=== PATIENT | female | born 2000 | race African-American/Black ===

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

== ENCOUNTER → 2022-01-11 | Outpatient (CLI) | payer MEDICAID | LOC: COL.RAD 10:02 | DX: K76.0 Fatty (change of) liver, not elsewhere classified (principal) | CPT/HCPCS: Q9967 ==

== ENCOUNTER 2022-06-26 11:20 | Emergency (ER) | payer MEDICAID ==
[~2022-06-26] VITALS: Ht 170.2 cm; Wt 97.7 kg
[2022-06-26 11:41] VITALS: TEMP 97.3
[2022-06-26 12:23] LABS: BASO % 0.2 % (0.0-2.0); GRAN # 7.9 K/mm3 (1.4-6.5); GRAN % 78.7 % (42.2-75.2); HEMATOCRIT 44.2 % (35.0-45.0); HEMOGLOBIN 15.6 g/dl (12.0-15.0); LYMPH # 1.7 K/mm3 (1.2-3.4); LYMPH % 17.1 % (20.0-51.0); MEAN CELL VOLUME 93 fl (80.0-95.0); MEAN CORPUSCULAR HEMOGLOBIN 33 pg (26-32); MEAN CORPUSCULAR HGB CONC 35 g/dl (33.0-37.0); MONO # 0.4 K/mm3 (0.1-0.6); MONO % 3.7 % (1.7-9.3); PLATELET COUNT 394 K/mm3 (130-400); RED BLOOD COUNT 4.76 M/mm3 (4.10-5.30); REDCELL DISTRIBUTION WIDTH-CV 11.9 % (11.5-14.5)
[2022-06-26 12:38] LABS: ALBUMIN 4.6 gm/dL (3.5-5.0); BILIRUBIN,TOTAL 0.3 mg/dL (0.2-1.2); CALCIUM 9.9 mg/dL (8.4-10.2); CREATININE, serum 0.74 mg/dL (0.57-1.11); POTASSIUM 3.9 mmol/L (3.5-4.5)
[2022-06-26] MEDS ORDERED: ZOFRAN ODT4 MG PO (14:22)
[2022-06-26 14:44] VITALS: BP 134/94; PULSE 76
== END 2022-06-26 14:44 | disposition home or self-care (01) ==
LOC: COL.ER 11:20
PROVIDERS: Personal Emergency Response Attendant
DX: O21.9 Vomiting of pregnancy, unspecified (principal); O26.899 Other specified pregnancy related conditions, unspecified trimester; R10.13 Epigastric pain; O99.330 Smoking (tobacco) complicating pregnancy, unspecified trimester; F17.290 Nicotine dependence, other tobacco product, uncomplicated; Z3A.00 Weeks of gestation of pregnancy not specified
CPT/HCPCS: J1790; J2270; J2405; J7030; Q9967

== ENCOUNTER 2022-07-01 05:18 | Emergency (ER) | payer MEDICAID ==
[~2022-07-01] VITALS: Ht 170.2 cm; Wt 97.7 kg
[~2022-07-01 05:18] MED LIST changes: +ZOFRAN ODT4 MG PO
[2022-07-01 05:19] VITALS: TEMP 97.9
[2022-07-01 06:02] LABS: ALBUMIN 4.4 gm/dL (3.5-5.0); BILIRUBIN,TOTAL 0.7 mg/dL (0.2-1.2); CALCIUM 9.8 mg/dL (8.4-10.2); CREATININE, serum 0.76 mg/dL (0.57-1.11); POTASSIUM 3.8 mmol/L (3.5-4.5); TOTAL PROTEIN 7.2 gm/dL (6.2-8.1)
[2022-07-01 06:03] LABS: BASO % 0.1 % (0.0-2.0); EOS # 0.1 K/mm3 (0.0-0.7); EOS % 0.6 % (0.0-4.0); GRAN # 6.4 K/mm3 (1.4-6.5); GRAN % 65.3 % (42.2-75.2); HEMATOCRIT 40.7 % (35.0-45.0); HEMOGLOBIN 14.6 g/dl (12.0-15.0); LYMPH # 2.8 K/mm3 (1.2-3.4); LYMPH % 28.2 % (20.0-51.0); MEAN CELL VOLUME 92 fl (80.0-95.0); MEAN CORPUSCULAR HEMOGLOBIN 33 pg (26-32); MEAN CORPUSCULAR HGB CONC 36 g/dl (33.0-37.0); MONO # 0.5 K/mm3 (0.1-0.6); MONO % 5.5 % (1.7-9.3); PLATELET COUNT 381 K/mm3 (130-400); RED BLOOD COUNT 4.44 M/mm3 (4.10-5.30); REDCELL DISTRIBUTION WIDTH-CV 11.8 % (11.5-14.5)
[2022-07-01] MEDS ORDERED: ZOFRAN ODT4 MG PO (07:08)
[2022-07-01 07:31] VITALS: BP 131/94; PULSE 83
== END 2022-07-01 07:34 | disposition home or self-care (01) ==
LOC: COL.ER 05:18
PROVIDERS: Personal Emergency Response Attendant
DX: R10.13 Epigastric pain (principal); R11.0 Nausea; Z32.02 Encounter for pregnancy test, result negative; Z28.311 Partially vaccinated for COVID-19
CPT/HCPCS: C9113; J1790; J2270; J2405; J7030

== ENCOUNTER 2022-07-11 06:22 | Emergency (ER) | payer MEDICAID ==
[2022-07-11 06:35] VITALS: TEMP 97.4
[2022-07-11] MEDS ORDERED: PEPCID 20MG TAB20 MG PO (06:45)
[2022-07-11 07:08] LABS: BASO % 0.1 % (0.0-2.0); EOS # 0.1 K/mm3 (0.0-0.7); EOS % 0.8 % (0.0-4.0); GRAN # 6.3 K/mm3 (1.4-6.5); GRAN % 61.1 % (42.2-75.2); HEMATOCRIT 45.1 % (35.0-45.0); HEMOGLOBIN 15.9 g/dl (12.0-15.0); LYMPH # 3.4 K/mm3 (1.2-3.4); LYMPH % 33.1 % (20.0-51.0); MEAN CELL VOLUME 94 fl (80.0-95.0); MEAN CORPUSCULAR HEMOGLOBIN 33 pg (26-32); MEAN CORPUSCULAR HGB CONC 35 g/dl (33.0-37.0); MEAN PLATELET VOLUME 9.2 fl (7.4-10.4); MONO # 0.5 K/mm3 (0.1-0.6); MONO % 4.6 % (1.7-9.3); PLATELET COUNT 444 K/mm3 (130-400); RED BLOOD COUNT 4.81 M/mm3 (4.10-5.30); REDCELL DISTRIBUTION WIDTH-CV 11.8 % (11.5-14.5)
[2022-07-11 07:13] LABS: BILIRUBIN,TOTAL 0.4 mg/dL (0.2-1.2); CALCIUM 9.6 mg/dL (8.4-10.2); CREATININE, serum 0.87 mg/dL (0.57-1.11); POTASSIUM 3.5 mmol/L (3.5-4.5); TOTAL PROTEIN 7.1 gm/dL (6.2-8.1)
[2022-07-11] MEDS ORDERED: PROTONIX 40MG T40 MG PO (07:31)
[2022-07-11 07:40] VITALS: BP 128/97; PULSE 108
[2022-07-11 07:46] LABS: COLLECTION METHOD CLEAN CATCH
[2022-07-11 08:00] LABS: MUCOUS Present (NOT PRESENT); URINE BACTERIA Rare /hpf (NONE SEEN); URINE COLOR Yellow (YELLOW); URINE RBC 0-2 /hpf (0-2)
[2022-07-11 08:01] LABS: PH 5.5 (5-8); URINE APPEARANCE Hazy (CLEAR/HAZY); URINE BLOOD Negative (NEGATIVE); URINE GLUCOSE Negative (NEGATIVE); URINE KETONE Negative (NEGATIVE); URINE NITRATE Negative (NEGATIVE); URINE PROTEIN(semi-quant) Negative (NEGATIVE); URINE UROBILINOGEN 0.2 (NEGATIVE)
== END 2022-07-11 07:40 | disposition home or self-care (01) ==
LOC: COL.ER 06:22
PROVIDERS: Emergency Medicine
DX: R10.13 Epigastric pain (principal); Z32.02 Encounter for pregnancy test, result negative; Z28.311 Partially vaccinated for COVID-19
CPT/HCPCS: J1790

== ENCOUNTER 2022-08-12 06:28 | Day surgery (SDC) | payer MEDICAID ==
[~2022-08-12] VITALS: Ht 170.2 cm; Wt 96.8 kg
[~2022-08-12 06:28] MED LIST changes: +PEPCID 20MG TAB20 MG PO; +PROTONIX 40MG T40 MG PO; +REGLAN 10MG10 MG/TAB PO
[2022-08-12] MEDS ORDERED: AMITRIPTYLINE H25 M1 PO (07:20)
[2022-08-12] MEDS ORDERED: PROZAC 20MG20 MG PO (07:21)
[2022-08-12] MEDS ORDERED: OZEMPIC0.25 MG/0. SQ (07:24)
[2022-08-12 08:20] VITALS: BP 120/92; PULSE 104; TEMP 96.6
[2022-08-12 08:35] VITALS: BP 116/85; PULSE 116
[2022-08-12 15:15] VITALS: BP 118/83; PULSE 96; TEMP 97.3
--- NOTE | 2022-08-12 15:55 | NUR ---
0820- Pt. returns to bay [facility] via cart after having EGD and colonoscopy. Assist of 2 to edge of cot and then ambulates to recliner. Monitor attached. Fluids infusing at a keep open rate. Call light in reach. Apple juice given. 0835- VS rechecked. Monitor d/c'd. Dr. Wallace in to go over results with pt. IV dc'd with cath intact. Discharge instructions gone over with patient with verbal understanding. Bag of clothes given to pt. and is ready to dress. 0854- Pt discharged via wheelchair in stable condition. Brought to patient entrance and dismisssed per private vehicle with family member.
== END 2022-08-12 08:54 ==
LOC: SDCO 06:28
DX: K29.50 Unspecified chronic gastritis without bleeding (principal); K31.89 Other diseases of stomach and duodenum; J45.909 Unspecified asthma, uncomplicated; K21.9 Gastro-esophageal reflux disease without esophagitis; R19.7 Diarrhea, unspecified; Z79.899 Other long term (current) drug therapy
CPT/HCPCS: J2704; J7120

== ENCOUNTER 2022-12-16 17:03 | Emergency (ER) | payer MEDICAID ==
[~2022-12-16] VITALS: Ht 170.2 cm; Wt 97.7 kg
[~2022-12-16 17:03] MED LIST changes: +AMITRIPTYLINE H25 M1 PO; +OZEMPIC0.25 MG/0. SQ; +PROZAC 20MG20 MG PO
[2022-12-16 17:07] VITALS: TEMP 97.9
[2022-12-16 17:26] LABS: COLLECTION METHOD CLEAN CATCH
[2022-12-16 17:30] LABS: BASO % 0.2 % (0.0-2.0); EOS # 0.1 K/mm3 (0.0-0.7); EOS % 0.4 % (0.0-4.0); GRAN # 8.4 K/mm3 (1.4-6.5); GRAN % 62.1 % (42.2-75.2); HEMATOCRIT 45.4 % (35.0-45.0); HEMOGLOBIN 15.9 g/dl (12.0-15.0); LYMPH # 4.2 K/mm3 (1.2-3.4); LYMPH % 31.1 % (20.0-51.0); MEAN CELL VOLUME 95 fl (80.0-95.0); MEAN CORPUSCULAR HEMOGLOBIN 33 pg (26-32); MEAN CORPUSCULAR HGB CONC 35 g/dl (33.0-37.0); MEAN PLATELET VOLUME 9.3 fl (7.4-10.4); MONO # 0.8 K/mm3 (0.1-0.6); MONO % 5.9 % (1.7-9.3); PLATELET COUNT 392 K/mm3 (130-400); RED BLOOD COUNT 4.79 M/mm3 (4.10-5.30); REDCELL DISTRIBUTION WIDTH-CV 11.7 % (11.5-14.5)
[2022-12-16 17:35] LABS: MUCOUS Present (NOT PRESENT); URINE BACTERIA None Seen /hpf (NONE SEEN); URINE RBC 0-2 /hpf (0-2)
[2022-12-16 17:36] LABS: URINE APPEARANCE Hazy (CLEAR/HAZY); URINE BLOOD TRACE-LYSED (NEGATIVE); URINE COLOR Yellow (YELLOW); URINE GLUCOSE Negative (NEGATIVE); URINE KETONE Negative (NEGATIVE); URINE NITRATE Negative (NEGATIVE); URINE PROTEIN(semi-quant) Negative (NEGATIVE); URINE UROBILINOGEN 0.2 (NEGATIVE)
[2022-12-16 17:49] LABS: ALBUMIN 4.3 gm/dL (3.5-5.0); BILIRUBIN,TOTAL 0.4 mg/dL (0.2-1.2); CALCIUM 9.5 mg/dL (8.4-10.2); CREATININE, serum 0.86 mg/dL (0.57-1.11); POTASSIUM 3.6 mmol/L (3.5-4.5); TOTAL PROTEIN 7.3 gm/dL (6.2-8.1)
[2022-12-16 18:55] VITALS: BP 132/92
[2022-12-16 19:05] VITALS: PULSE 84
== END 2022-12-16 19:17 | disposition home or self-care (01) ==
LOC: COL.ER 17:03
PROVIDERS: Nurse Practitioner Primary Care
DX: R10.31 Right lower quadrant pain (principal); R10.32 Left lower quadrant pain; Z28.311 Partially vaccinated for COVID-19
CPT/HCPCS: J1885; Q9967

== ENCOUNTER 2023-11-05 13:19 | Emergency (ER) | payer MEDICAID ==
[~2023-11-05] VITALS: Ht 170.2 cm; Wt 93.2 kg
[~2023-11-05 13:19] MED LIST changes: +CREON 120000 U-1 ECC PO
[2023-11-05] MEDS ORDERED: Ondansetron 4 MG/2 ML VIAL IV ONE (14:00)
[2023-11-05] MEDS ORDERED: Morphine 4 MG/ML VIAL IV PRN (14:00)
[2023-11-05] MEDS ORDERED: NS 1,000 ML IV ONE (14:00)
[2023-11-05 14:08] LABS: ALBUMIN 4.2 gm/dL (3.5-5.0); BILIRUBIN,TOTAL 0.7 mg/dL (0.2-1.2); CALCIUM 9.4 mg/dL (8.4-10.2); CREATININE, serum 0.85 mg/dL (0.57-1.11); POTASSIUM 3.4 mmol/L (3.5-4.5); TOTAL PROTEIN 7.2 gm/dL (6.2-8.1)
[2023-11-05 14:14] LABS: BASO % 0.1 % (0.0-2.0); EOS % 0.4 % (0.0-4.0); GRAN # 5.2 K/mm3 (1.4-6.5); GRAN % 70.9 % (42.2-75.2); HEMATOCRIT 46.5 % (37.0-47.0); LYMPH # 1.6 K/mm3 (1.2-3.4); LYMPH % 21.1 % (20.0-51.0); MEAN CELL VOLUME 96 fl (80.0-100.0); MEAN CORPUSCULAR HEMOGLOBIN 33 pg (27-31); MEAN CORPUSCULAR HGB CONC 34 g/dl (33.0-37.0); MEAN PLATELET VOLUME 9.5 fl (7.4-10.4); MONO # 0.5 K/mm3 (0.1-0.6); MONO % 7.2 % (1.7-9.3); PLATELET COUNT 374 K/mm3 (130-400); RED BLOOD COUNT 4.83 M/mm3 (4.10-5.30); REDCELL DISTRIBUTION WIDTH-CV 11.6 % (11.5-14.5)
[2023-11-05] MEDS ORDERED: ZOFRAN ODT4 MG PO (14:34)
[2023-11-05 14:49] LABS: COLLECTION METHOD CLEAN CATCH
[2023-11-05 15:21] LABS: URINE COLOR Yellow (YELLOW)
[2023-11-05 15:22] LABS: PH 5.5 (5.0-8.5); SQUAMOUS EPITHELIAL 20-50 /hpf (0-10); URINE APPEARANCE Cloudy (CLEAR/HAZY); URINE BLOOD TRACE-INTACT (NEGATIVE); URINE GLUCOSE Negative (NEGATIVE); URINE KETONE Negative (NEGATIVE); URINE NITRATE Negative (NEGATIVE); URINE PROTEIN(semi-quant) Negative (NEGATIVE); URINE RBC 0-2 /hpf (0-2)
[2023-11-05 15:23] LABS: MUCOUS Present (NOT PRESENT); URINE BACTERIA Moderate /hpf (NONE SEEN)
[2023-11-05 15:36] VITALS: BP 98/85; PULSE 79; TEMP 98.2
== END 2023-11-05 15:36 | disposition home or self-care (01) ==
LOC: COL.ER 13:19
PROVIDERS: Emergency Medicine
DX: R11.2 Nausea with vomiting, unspecified (principal); R10.84 Generalized abdominal pain
CPT/HCPCS: J2270; J2405; J7030

== ENCOUNTER 2024-01-06 07:26 | Emergency (ER) | payer MEDICAID ==
[~2024-01-06] VITALS: Ht 170.2 cm; Wt 93.2 kg
[2024-01-06 07:30] VITALS: BP 128/90; TEMP 97.4
[2024-01-06] MEDS ORDERED: Ondansetron 4 MG/2 ML VIAL IV ONE (07:45)
[2024-01-06] MEDS ORDERED: Morphine 4 MG/ML VIAL IV ONE ×2 (07:45→09:00)
[2024-01-06] MEDS ORDERED: LR 1,000 ML IV ONE (07:45)
[2024-01-06 07:52] LABS: COLLECTION METHOD CLEAN CATCH
[2024-01-06 07:56] LABS: URINE APPEARANCE CLEAR (CLEAR/HAZY); URINE BLOOD NEGATIVE (NEGATIVE); URINE COLOR YELLOW (YELLOW); URINE GLUCOSE NEGATIVE (NEGATIVE); URINE KETONE NEGATIVE (NEGATIVE); URINE NITRATE NEGATIVE (NEGATIVE); URINE PROTEIN(semi-quant) NEGATIVE (NEGATIVE)
[2024-01-06 07:58] LABS: BASO % 0.4 % (0.0-2.0); EOS # 0.1 K/mm3 (0.0-0.7); EOS % 1.5 % (0.0-4.0); GRAN # 3.5 K/mm3 (1.4-6.5); GRAN % 51.7 % (42.2-75.2); HEMATOCRIT 45.1 % (37.0-47.0); HEMOGLOBIN 15.8 g/dl (12.5-16.0); LYMPH # 2.7 K/mm3 (1.2-3.4); LYMPH % 40.1 % (20.0-51.0); MEAN CELL VOLUME 95 fl (80.0-100.0); MEAN CORPUSCULAR HEMOGLOBIN 33 pg (27-31); MEAN CORPUSCULAR HGB CONC 35 g/dl (33.0-37.0); MONO # 0.4 K/mm3 (0.1-0.6); MONO % 6.2 % (1.7-9.3); PLATELET COUNT 393 K/mm3 (130-400); RED BLOOD COUNT 4.73 M/mm3 (4.10-5.30); REDCELL DISTRIBUTION WIDTH-CV 11.8 % (11.5-14.5)
[2024-01-06 08:19] LABS: ALBUMIN 4.2 gm/dL (3.5-5.0); BILIRUBIN,TOTAL 0.4 mg/dL (0.2-1.2); C-REACTIVE PROTEIN 0.1 mg/dL (0.00-0.50); CALCIUM 9.4 mg/dL (8.4-10.2); CREATININE, serum 0.83 mg/dL (0.57-1.11); POTASSIUM 3.9 mmol/L (3.5-4.5)
[2024-01-06 09:31] VITALS: PULSE 80
== END 2024-01-06 09:44 | disposition home or self-care (01) ==
LOC: COL.ER 07:26
PROVIDERS: Family Medicine
DX: R11.2 Nausea with vomiting, unspecified (principal); R10.9 Unspecified abdominal pain; Z87.19 Personal history of other diseases of the digestive system
CPT/HCPCS: J2270; J2405; J7120

== ENCOUNTER 2024-01-16 07:34 | Emergency (ER) | payer MEDICAID ==
[~2024-01-16] VITALS: Ht 170.2 cm; Wt 93.2 kg
[2024-01-16 09:16] VITALS: TEMP 98.1
[2024-01-16] MEDS ORDERED: Ondansetron 4 MG/2 ML VIAL IV ONE (10:30)
[2024-01-16] MEDS ORDERED: LR 1,000 ML IV ONE (10:30)
[2024-01-16] MEDS ORDERED: Morphine 4 MG/ML VIAL IV ONE (10:30)
[2024-01-16 10:50] LABS: COLLECTION METHOD CLEAN CATCH
[2024-01-16 10:56] LABS: PH 5.5 (5.0-8.5); URINE APPEARANCE CLEAR (CLEAR/HAZY); URINE BLOOD NEGATIVE (NEGATIVE); URINE COLOR YELLOW (YELLOW); URINE GLUCOSE NEGATIVE (NEGATIVE); URINE KETONE NEGATIVE (NEGATIVE); URINE NITRATE NEGATIVE (NEGATIVE); URINE PROTEIN(semi-quant) NEGATIVE (NEGATIVE); URINE UROBILINOGEN 0.2 E.U/dL (0.2-1.0)
[2024-01-16 10:56] LABS: BASO % 0.4 % (0.0-2.0); EOS # 0.1 K/mm3 (0.0-0.7); EOS % 0.6 % (0.0-4.0); GRAN % 51.4 % (42.2-75.2); HEMATOCRIT 46.4 % (37.0-47.0); HEMOGLOBIN 15.9 g/dl (12.5-16.0); LYMPH # 3.3 K/mm3 (1.2-3.4); LYMPH % 42.2 % (20.0-51.0); MEAN CELL VOLUME 97 fl (80.0-100.0); MEAN CORPUSCULAR HEMOGLOBIN 33 pg (27-31); MEAN CORPUSCULAR HGB CONC 34 g/dl (33.0-37.0); MEAN PLATELET VOLUME 9.1 fl (7.4-10.4); MONO # 0.4 K/mm3 (0.1-0.6); MONO % 5.1 % (1.7-9.3); PLATELET COUNT 386 K/mm3 (130-400); RED BLOOD COUNT 4.78 M/mm3 (4.10-5.30); REDCELL DISTRIBUTION WIDTH-CV 11.8 % (11.5-14.5)
[2024-01-16 11:28] LABS: ALBUMIN 4.3 gm/dL (3.5-5.0); BILIRUBIN,TOTAL 0.4 mg/dL (0.2-1.2); CALCIUM 9.6 mg/dL (8.4-10.2); CREATININE, serum 0.85 mg/dL (0.57-1.11); TOTAL PROTEIN 7.1 gm/dL (6.2-8.1)
[2024-01-16] MEDS ORDERED: Haloperidol Lactate 5 MG/ML VIAL IV ONE (12:00)
[2024-01-16] MEDS ORDERED: diphenhydrAMINE 50 MG/ML 1 ML VIAL IV ONE (12:00)
[2024-01-16 13:09] VITALS: BP 121/69; PULSE 67
== END 2024-01-16 13:09 | disposition home or self-care (01) ==
LOC: COL.ER 07:34
PROVIDERS: Emergency Medicine
DX: R10.9 Unspecified abdominal pain (principal); R11.2 Nausea with vomiting, unspecified; G25.71 Drug induced akathisia; Z87.19 Personal history of other diseases of the digestive system
CPT/HCPCS: J1200; J1630; J2270; J2405; J7120

== ENCOUNTER 2024-08-14 13:47 | Emergency (ER) | payer MEDICAID ==
[~2024-08-14] VITALS: Ht 170.2 cm; Wt 90.9 kg
[2024-08-14 13:48] VITALS: TEMP 96.6
[2024-08-14 14:26] LABS: BASO % 0.2 % (0.0-2.0); EOS # 0.1 K/mm3 (0.0-0.7); EOS % 0.5 % (0.0-4.0); GRAN # 8.7 K/mm3 (1.4-6.5); GRAN % 81.6 % (42.2-75.2); HEMATOCRIT 47.1 % (37.0-47.0); HEMOGLOBIN 16.8 g/dl (12.5-16.0); LYMPH # 1.3 K/mm3 (1.2-3.4); LYMPH % 12.6 % (20.0-51.0); MEAN CELL VOLUME 95 fl (80.0-100.0); MEAN CORPUSCULAR HEMOGLOBIN 34 pg (27-31); MEAN CORPUSCULAR HGB CONC 36 g/dl (33.0-37.0); MEAN PLATELET VOLUME 8.9 fl (7.4-10.4); MONO # 0.5 K/mm3 (0.1-0.6); MONO % 4.9 % (1.7-9.3); PLATELET COUNT 378 K/mm3 (130-400); RED BLOOD COUNT 4.95 M/mm3 (4.10-5.30); REDCELL DISTRIBUTION WIDTH-CV 11.6 % (11.5-14.5)
[2024-08-14 14:39] LABS: ALBUMIN 3.7 g/dL (3.5-5.0); BILIRUBIN,TOTAL 0.6 mg/dL (0.2-1.2); CALCIUM 9.1 mg/dL (8.4-10.2); CREATININE, serum 0.81 mg/dL (0.57-1.11); POTASSIUM 3.9 mEq/L (3.5-4.5); TOTAL PROTEIN 6.4 g/dl (6.2-8.1)
[2024-08-14] MEDS ORDERED: Ketorolac 15 MG/ML VIAL IV ONE (15:30)
[2024-08-14] MEDS ORDERED: Ondansetron 4 MG/2 ML VIAL IV ONE ×2 (15:30→16:45)
[2024-08-14] MEDS ORDERED: Iohexol 300 - 100 ML VIAL IV ONE (15:45)
[2024-08-14] MEDS ORDERED: NS 100 ML IV SCH (15:46)
[2024-08-14 15:50] LABS: COLLECTION METHOD CLEAN CATCH
[2024-08-14 15:59] LABS: PH 5.5 (5.0-8.5); URINE APPEARANCE CLEAR (CLEAR/HAZY); URINE BLOOD NEGATIVE (NEGATIVE); URINE COLOR YELLOW (YELLOW); URINE GLUCOSE NEGATIVE (NEGATIVE); URINE KETONE TRACE (NEGATIVE); URINE NITRATE NEGATIVE (NEGATIVE); URINE PROTEIN(semi-quant) NEGATIVE (NEGATIVE); URINE UROBILINOGEN 0.2 E.U/dL (0.2-1.0)
[2024-08-14 16:30] VITALS: BP 111/77
[2024-08-14] MEDS ORDERED: NS 1,000 ML IV ONE (16:45)
[2024-08-14] MEDS ORDERED: Morphine 4 MG/ML VIAL IV ONE (16:45)
[2024-08-14 18:33] VITALS: PULSE 90
== END 2024-08-14 18:33 | disposition home or self-care (01) ==
LOC: COL.ER 13:47
PROVIDERS: Family Medicine
DX: R10.13 Epigastric pain (principal); R11.2 Nausea with vomiting, unspecified
CPT/HCPCS: J1885; J2270; J2405; J7030; Q9967